=== PATIENT | male | born 1970 | race Caucasian/White ===

== ENCOUNTER 2018-07-19 19:33 | Emergency (ER) | payer OTHER ==
[~2018-07-19] VITALS: Ht 167.6 cm; Wt 77.1 kg
[2018-07-19] MEDS ORDERED: Percocet 5-3251 EACH PO (21:06)
== END 2018-07-19 21:16 | disposition home or self-care (01) ==
LOC: ER 19:33
DX: R07.81 Pleurodynia (principal); Z86.73 Personal history of transient ischemic attack (TIA), and cerebral infarction without residual deficits; F17.200 Nicotine dependence, unspecified, uncomplicated
CPT/HCPCS: 71101; 99283-25